=== PATIENT | female | born 1995 | race Two or more races ===

== ENCOUNTER 2025-01-24 09:23 | Outpatient (CLI) | payer MEDICAID, SELFPAY ==
[2025-01-24] VITALS (26 sets, daily range): BP systolic 121; BP diastolic 63–76; PULSE 82–126; RESP 18–97; TEMP 36.6; O2SAT 97–100; BMI 42.2
[2025-01-24] MEDS: BETAMET ACET/BETAMET NA PH (Celestone) 6 MG/ML VIAL 12 MG IM (11:23)
== END 2025-01-24 12:07 | disposition home or self-care (01) ==
LOC: S4S1 09:24 → S4SX 09:25
PROVIDERS: Referring Provider Specialist; Visit Provider Specialist
DX: O60.03 Preterm labor without delivery, third trimester (principal); Z3A.30 30 weeks gestation of pregnancy
CPT/HCPCS: 96372; J0702

== ENCOUNTER 2025-01-25 11:30 | Outpatient (CLI) | payer MEDICAID, SELFPAY ==
[2025-01-25] VITALS (28 sets, daily range): BP systolic 119–140; BP diastolic 59–77; PULSE 65–119; RESP 18–97; TEMP 36.9; O2SAT 97–99; BMI 42.3
[2025-01-25] MEDS: BETAMET ACET/BETAMET NA PH (Celestone) 6 MG/ML VIAL 12 MG IM (11:46)
--- NOTE | 2025-01-25 12:21 | XR_ITS ---
Examination: OB Transvaginal ultrasound of the pelvis, Limited Technique: Transvaginal sonographic images pelvis performed using troncoso scale imaging Exam date and time: January 25, 2025 1239 hrs. Indications: Pelvic contractions today, unknown cervical length Findings: Cardiac motion 147 BPM Cervix 3.2 cm closed Impression: Cervix 3.2 cm.
[2025-01-25] MEDS: HYDROcodone/APAP 5/325 TABLET 1 TAB PO (13:14)
[2025-01-25 13:21] LABS: Collection Type, Urine Clean Catch; RBC,Urine 0 /hpf (0-3)
[2025-01-25 13:32] LABS: Basophils % (Auto) 0 % (0-2.5); Eosinophils % (Auto) 0 % (0-10); Hematocrit 33.3 % (36.0-46.0); Hemoglobin 11.6 g/dL (12.0-16.0); Immature Granulocytes % (Auto) 1 % (0-0); Immature Granulocytes Auto 0.06 Thou/mm3 (0.00-0.00); Lymphocytes # (Auto) 1.2 Thou/mm3 (1.0-4.8); Lymphocytes % (Auto) 12 % (10-50); Mean Corpuscular HGB Conc 34.8 g/dl (31.0-37.0); Mean Corpuscular Hemoglobin 27.9 pg (25.0-35.0); Mean Corpuscular Volume 80 fL (80-100); Monocytes # (Auto) 0.9 Thou/mm3 (0.0-0.8); Monocytes % (Auto) 8 % (0-12); Neutrophils # (Auto) 8.2 Thou/mm3 (1.8-7.7); Neutrophils % (Auto) 79 % (37-80); Nucleated Red Blood Cell % 0 /100 WBC (0); Platelet Count 160 Thou/mm3 (140-440); RDW Standard Deviation 38.5 fL (36.4-46.3); Red Blood Count 4.16 Miln/mm3 (4.00-5.20); White Blood Count 10.4 Thou/mm3 (3.6-11.0)
[2025-01-25 13:39] LABS: Bilirubin,Urine Negative (Negative); Blood,Urine Negative (Negative); Clarity,Urine Clear (Clear/Hazy); Glucose, Urine Negative (Negative); Ketones,Urine Negative (Negative); Leukocyte Esterase,Urine Negative (Negative); Nitrite,Urine Negative (Negative); PH,Urine 5.5 (5.0-7.0); Protein,Urine Negative (Neg - Trace); Specific Gravity,Urine 1.006 (1.001-1.035); Squamous Epithelial Cell,Urine 3 /hpf (0-5); Urobilinogen,Urine Negative mg/dL (0.0-1.0); WBC,Urine 1 /hpf (0-5)
[2025-01-25 13:43] LABS: Fibrinogen 528 mg/dL (175-375); INR 0.9 (0.9-1.3); Partial Thromboplastin Time 25.1 Seconds (22.0-36.0); Prothrombin Time 10.3 Seconds (9.0-12.2)
[2025-01-25 13:45] LABS: Color,Urine Lt-Yellow (Lt Yel-Yel)
[2025-01-25 13:48] LABS: Creatinine,Random Urine 27 mg/dL (30-125); Protein Total, Random Urine < 6 mg/dL (1-14)
[2025-01-25 13:50] LABS: Alanine Aminotransferase 9 U/L (10-49); Albumin, Serum 3.7 gm/dL (3.5-5.0); Albumin/Globulin Ratio 1.6 (1.2-2.2); Alkaline Phosphatase 103 U/L (46-116); Anion Gap 11 (7-16); Aspartate Amino Transferase 12 U/L (0-34); BUN/Creatinine Ratio 10 Ratio (12-20); Bilirubin,Total 0.3 mg/dL (0.3-1.2); Blood Urea Nitrogen 6 mg/dL (9-23); Calcium 8.8 mg/dL (8.3-10.6); Carbon Dioxide 20.8 mMol/L (20.0-31.0); Chloride 106 mMol/L (98-107); Creatinine (Component) 0.6 mg/dL (0.6-1.3); Globulin 2.3 gm/dL (2.3-3.5); Glucose 125 mg/dL (74-106); Osmolality,Calculated 274 (275-295); Potassium 4.6 mMol/L (3.4-5.1); Sodium 138 mMol/L (136-145); eGFR > 60 See Note
[2025-01-25] MEDS: NIFEdipine 10 MG CAPSULE PO (14:06)
== END 2025-01-25 14:20 | disposition home or self-care (01) ==
LOC: S4S1 11:32 → S4SX 11:32
PROVIDERS: PCP Family Medicine; Referring Provider Obstetrics & Gynecology; Visit Provider Obstetrics & Gynecology
DX: O47.00 False labor before 37 completed weeks of gestation, unspecified trimester (principal); Z3A.30 30 weeks gestation of pregnancy
CPT/HCPCS: 36415; 76817; 80053; 81001; 82570; 84156; 84550; 85025; 85384; 85610; 85730; 96372; J0702; A9270

== ENCOUNTER 2025-02-20 12:01 | Observation (INO) | payer MEDICAID, SELFPAY ==
[2025-02-20] VITALS (16 sets, daily range): BP systolic 135–136; BP diastolic 77–82; PULSE 74–112; RESP 18–99; TEMP 36.9; O2SAT 98–99; BMI 43.0
[2025-02-20] MEDS: ONDANSETRON INJ 2 MG/ML INJ 2 ML 4 MG IVP (13:11)
[2025-02-20] MEDS: RINGERS LACTATED 1000 ML 1,000 ML 999 ML IV (13:12)
== END 2025-02-20 14:35 | disposition home or self-care (01) ==
PROVIDERS: Admitting Provider Obstetrics & Gynecology; Visit Provider Obstetrics & Gynecology
DX: O26.899 Other specified pregnancy related conditions, unspecified trimester (principal); Z3A.00 Weeks of gestation of pregnancy not specified; R25.2 Cramp and spasm
CPT/HCPCS: 59025; 59899; 96374; J2405; J7120

== ENCOUNTER 2025-03-13 11:58 | Outpatient (CLI) | payer MEDICAID, SELFPAY ==
[2025-03-13] VITALS (48 sets, daily range): BP systolic 104–140; BP diastolic 62–88; PULSE 68–127; RESP 16–98; TEMP 36.7; O2SAT 97–99; BMI 43.5
[2025-03-13 12:46] LABS: Collection Type, Urine Clean Catch
--- NOTE | 2025-03-13 12:46 | XR_ITS ---
Examination: Biophysical profile, ultrasound Date and time of exam: March 13, 2025 1306 hours INDICATIONS: Decreased movement today Technique: Multiple transabdominal sonographic images of the pelvis abdomen obtained. Attention is directed to the breathing movement, gross body movement, amniotic fluid volume and tone. Findings: Amniotic fluid index 13.6 cm Total biophysical profile is 8 of 8. breathing movement is 2. Gross body movement is 2. tone is 2. Qualitative amniotic fluid volume is 2 Impression: Biophysical profile is 8 of 8.
[2025-03-13 12:52] LABS: Bilirubin,Urine Negative (Negative); Blood,Urine Negative (Negative); Clarity,Urine Clear (Clear/Hazy); Color,Urine Lt-Yellow (Lt Yel-Yel); Glucose, Urine Negative (Negative); Hyaline Casts,Urine < 1 /hpf (0-1); Ketones,Urine Negative (Negative); Leukocyte Esterase,Urine Positive (Negative); Nitrite,Urine Negative (Negative); PH,Urine 6.5 (5.0-7.0); Protein,Urine Negative (Neg - Trace); RBC,Urine 1 /hpf (0-3); Specific Gravity,Urine 1.014 (1.001-1.035); Squamous Epithelial Cell,Urine 10 /hpf (0-5); Urobilinogen,Urine Negative mg/dL (0.0-1.0); WBC,Urine 6 /hpf (0-5)
[2025-03-13 12:59] LABS: Creatinine,Random Urine 80 mg/dL (30-125); Protein Total, Random Urine 16 mg/dL (1-14)
[2025-03-13 13:30] LABS: Basophils # (Auto) 0.0 Thou/mm3 (0.0-0.2); Basophils % (Auto) 0 % (0-2.5); Eosinophils # (Auto) 0.0 Thou/mm3 (0.0-0.5); Eosinophils % (Auto) 1 % (0-10); Hematocrit 36.5 % (36.0-46.0); Hemoglobin 12.4 g/dL (12.0-16.0); Immature Granulocytes Auto 0.02 Thou/mm3 (0.00-0.00); Lymphocytes # (Auto) 1.7 Thou/mm3 (1.0-4.8); Lymphocytes % (Auto) 24 % (10-50); Mean Corpuscular HGB Conc 34.0 g/dl (31.0-37.0); Mean Corpuscular Hemoglobin 27.5 pg (25.0-35.0); Mean Corpuscular Volume 81 fL (80-100); Monocytes # (Auto) 0.6 Thou/mm3 (0.0-0.8); Monocytes % (Auto) 8 % (0-12); Neutrophils # (Auto) 4.7 Thou/mm3 (1.8-7.7); Neutrophils % (Auto) 67 % (37-80); Nucleated Red Blood Cell # 0.00 Thou/mm3 (0.00-0.00); Nucleated Red Blood Cell % 0 /100 WBC (0); Platelet Count 134 Thou/mm3 (140-440); RDW Standard Deviation 43.0 fL (36.4-46.3); Red Blood Count 4.51 Miln/mm3 (4.00-5.20); White Blood Count 7.1 Thou/mm3 (3.6-11.0)
[2025-03-13 13:52] LABS: Fibrinogen 557 mg/dL (175-375); INR 0.9 (0.9-1.3); Partial Thromboplastin Time 25.3 Seconds (22.0-36.0); Prothrombin Time 9.8 Seconds (9.0-12.2)
[2025-03-13 13:59] LABS: Alanine Aminotransferase 9 U/L (10-49); Albumin, Serum 3.6 gm/dL (3.5-5.0); Albumin/Globulin Ratio 1.4 (1.2-2.2); Alkaline Phosphatase 185 U/L (46-116); Anion Gap 8 (7-16); Aspartate Amino Transferase 15 U/L (0-34); BUN/Creatinine Ratio 9 Ratio (12-20); Bilirubin,Total 0.3 mg/dL (0.3-1.2); Blood Urea Nitrogen 6 mg/dL (9-23); Calcium 9.5 mg/dL (8.3-10.6); Calcium (Corrected) 9.8 mg/dL (8.5-10.1); Carbon Dioxide 22.0 mMol/L (20.0-31.0); Chloride 107 mMol/L (98-107); Creatinine (Component) 0.7 mg/dL (0.6-1.3); Estimated Creatinine Clearance 124.6 mL/min (>60); Globulin 2.5 gm/dL (2.3-3.5); Glucose 92 mg/dL (74-106); LDH (Lactate Dehydrogenase) 194 U/L (120-246); Osmolality,Calculated 271 (275-295); Potassium 4.4 mMol/L (3.4-5.1); Sodium 137 mMol/L (136-145); Total Protein 6.1 gm/dL (5.7-8.2); Uric Acid 5.1 mg/dL (3.1-7.8); eGFR > 60 See Note
[2025-03-13] MEDS: FAMOTIDINE 20 MG TABLET 40 MG PO (14:48)
== END 2025-03-13 16:25 | disposition home or self-care (01) ==
LOC: S4S1 12:02 → S4SX 12:04
PROVIDERS: Referring Provider Obstetrics & Gynecology; Visit Provider Obstetrics & Gynecology
DX: O36.8130 Decreased fetal movements, third trimester, not applicable or unspecified (principal); O26.893 Other specified pregnancy related conditions, third trimester; R51.9 Headache, unspecified; R12 Heartburn; Z3A.37 37 weeks gestation of pregnancy
CPT/HCPCS: 36415; 59025; 76819; 80053; 81001; 82570; 83615; 84156; 84550; 85025; 85384; 85610; 85730; A9270

== ENCOUNTER 2025-03-15 08:09 | Outpatient (CLI) | payer MEDICAID, SELFPAY ==
[2025-03-15] VITALS (11 sets, daily range): BP systolic 127; BP diastolic 77; PULSE 82–126; RESP 18–98; TEMP 36.6; O2SAT 97–99; BMI 43.8
--- NOTE | 2025-03-15 08:32 | XR_ITS ---
Examination: Biophysical profile, ultrasound Date and time of exam: March 15, 2025, 0847 hrs. Indications: Hypertension with headaches and decreased movement the last 2 days Technique: Multiple transabdominal sonographic images of the pelvis abdomen obtained. Attention is directed to the breathing movement, gross body movement, amniotic fluid volume and tone. Findings: Amniotic fluid volume 13.3 cm Total biophysical profile is 8 of 8. breathing movement is 2. Gross body movement is 2. tone is 2. Qualitative amniotic fluid volume is 2 Impression: Biophysical profile is 8 of 8.
--- NOTE | 2025-03-15 09:45 | PC.NURSE ---
5667 discharge instructions reviewed, labor precautions, kick counts, keep next scheduled md appt. copies given. pt agrees/understands.
--- NOTE | 2025-03-15 09:48 | PD.LDPN ---
Documentation for date of: 03/15/25 OB Labor Progress Note Pelvic Exam Amniotic membrane status: Intact Contractions Monitor mode: External Contraction frequency: occ Status status: Category l Assessment and Plan Comments: Triage Note Yue is a 29yo with SIUP at 37+wk presenting to L&D for decreased movement. She had recent normal testing 2 days prior on L&D with reactive NST, BPP 8/8. She notes no ctx, no lof, no vaginal bleeding. ROS negative other than what was described above. Vitals wnl, afebrile General: well developed, well nourished, no acute distress, conversant Cardiac: normal heart rate Lungs: breathing without distress Abdomen: soft, gravid, non-tender, no rebound or guarding Extremities: no pain with palpation of calves NST: Reactive, + accels, no decels, mod david Occasional ctx Formal ultrasound: DIONICIO 13.3cm, BPP 8/8 Assessment: Yue is a 29yo with SIUP at 37+wk with decreased movement. Vitals wnl, benign exam. Reassuring status based on NST and BPP. Plan: -Provided reassurance regarding findings -Continue routine follow up with OBGYN -Discussed return precautions at length including FKCs Dr. Bolivar
== END 2025-03-15 09:40 | disposition home or self-care (01) ==
LOC: S4S1 08:15 → S4SX 08:18
PROVIDERS: Referring Provider Obstetrics & Gynecology; Visit Provider Obstetrics & Gynecology
DX: O36.8130 Decreased fetal movements, third trimester, not applicable or unspecified (principal); Z3A.37 37 weeks gestation of pregnancy
CPT/HCPCS: 76819

== ENCOUNTER 2025-03-21 09:50 | Inpatient (IN) | payer MEDICAID, SELFPAY ==
[2025-03-21] VITALS (158 sets, daily range): BP systolic 71–142; BP diastolic 41–98; PULSE 65–127; RESP 18–98; TEMP 36.6–37.1; O2SAT 87–100; BMI 43.0
--- NOTE | 2025-03-21 10:37 | XR_ITS ---
Examination: Complete OB ultrasound greater than 14 weeks Date and time of exam: March 21, 2025 1127 hours INDICATIONS: Labor induction today, diagnosis gestational hypertension Findings: Viable intrauterine single fetus with single amniotic sac presentation cephalic spine maternal left Cardiac motion 137 BPM Placenta posterior grade 2 Of the cervical cord insertion 3 vessel seen Amniotic fluid index 16.5 cm Ovaries obscured by bowel gas. Composite estimated gestational age based on BPD, head circumference, abdominal circumference, femur length is 38 weeks 5 days Estimated weight 3499 g. Survey of intracranial anatomy, spinal anatomy, abdominal anatomy, four-chamber heart performed with no abnormalities identified. Impression: Viable intrauterine gestation cephalic presentation.
[2025-03-21 10:54] LABS: Basophils # (Auto) 0.0 Thou/mm3 (0.0-0.2); Basophils % (Auto) 0 % (0-2.5); Eosinophils # (Auto) 0.1 Thou/mm3 (0.0-0.5); Eosinophils % (Auto) 1 % (0-10); Hematocrit 38.5 % (36.0-46.0); Hemoglobin 13.2 g/dL (12.0-16.0); Immature Granulocytes Auto 0.01 Thou/mm3 (0.00-0.00); Lymphocytes # (Auto) 1.9 Thou/mm3 (1.0-4.8); Lymphocytes % (Auto) 27 % (10-50); Mean Corpuscular HGB Conc 34.3 g/dl (31.0-37.0); Mean Corpuscular Hemoglobin 27.9 pg (25.0-35.0); Mean Corpuscular Volume 81 fL (80-100); Monocytes # (Auto) 0.5 Thou/mm3 (0.0-0.8); Monocytes % (Auto) 6 % (0-12); Neutrophils # (Auto) 4.6 Thou/mm3 (1.8-7.7); Neutrophils % (Auto) 65 % (37-80); Nucleated Red Blood Cell # 0.00 Thou/mm3 (0.00-0.00); Nucleated Red Blood Cell % 0 /100 WBC (0); Platelet Count 195 Thou/mm3 (140-440); RDW Standard Deviation 43.4 fL (36.4-46.3); Red Blood Count 4.73 Miln/mm3 (4.00-5.20); White Blood Count 7.0 Thou/mm3 (3.6-11.0)
[2025-03-21 11:09] LABS: Protein Total, Urine Volume 1400 mL/24hr (600-1800)
[2025-03-21 11:16] LABS: Creatinine,Random Urine 76 mg/dL (30-125); Protein Total, 24 hr Urine 238 mg/24hr (<149); Protein Total, Random Urine 17 mg/dL (1-14); Protein Total, Urine 17 mg/dL (1-14)
[2025-03-21 11:25] LABS: Alanine Aminotransferase 10 U/L (10-49); Albumin, Serum 3.6 gm/dL (3.5-5.0); Albumin/Globulin Ratio 1.5 (1.2-2.2); Alkaline Phosphatase 196 U/L (46-116); Anion Gap 13 (7-16); Aspartate Amino Transferase 18 U/L (0-34); BUN/Creatinine Ratio 13 Ratio (12-20); Bilirubin,Total 0.3 mg/dL (0.3-1.2); Blood Urea Nitrogen 9 mg/dL (9-23); Calcium 9.2 mg/dL (8.3-10.6); Calcium (Corrected) 9.5 mg/dL (8.5-10.1); Carbon Dioxide 19.2 mMol/L (20.0-31.0); Chloride 106 mMol/L (98-107); Creatinine (Component) 0.7 mg/dL (0.6-1.3); Estimated Creatinine Clearance 123.6 mL/min (>60); Globulin 2.4 gm/dL (2.3-3.5); Glucose 100 mg/dL (74-106); Osmolality,Calculated 274 (275-295); Potassium 3.7 mMol/L (3.4-5.1); Sodium 138 mMol/L (136-145); Total Protein 6.0 gm/dL (5.7-8.2); Uric Acid 5.3 mg/dL (3.1-7.8); eGFR > 60 See Note
[2025-03-21 11:32] LABS: Syphilis Nonreactive (Nonreactive)
[2025-03-21 11:33] LABS: Collection Type, Urine Clean Catch
[2025-03-21 11:41] LABS: Bacteria,Urine Rare; Bilirubin,Urine Negative (Negative); Blood,Urine Negative (Negative); Clarity,Urine Turbid (Clear/Hazy); Color,Urine Yellow (Lt Yel-Yel); Glucose, Urine Negative (Negative); Ketones,Urine Negative (Negative); Leukocyte Esterase,Urine Positive (Negative); Nitrite,Urine Negative (Negative); PH,Urine 6.5 (5.0-7.0); Protein,Urine 1+ (Neg - Trace); RBC,Urine 8 /hpf (0-3); Specific Gravity,Urine 1.022 (1.001-1.035); Squamous Epithelial Cell,Urine 22 /hpf (0-5); Urobilinogen,Urine Negative mg/dL (0.0-1.0); WBC,Urine 8 /hpf (0-5)
[2025-03-21 12:44] LABS: INR 0.9 (0.9-1.3); Partial Thromboplastin Time 24.5 Seconds (22.0-36.0); Prothrombin Time 10.1 Seconds (9.0-12.2)
[2025-03-21 12:47] LABS: Fibrinogen 538 mg/dL (175-375)
[2025-03-21] MEDS: RINGERS LACTATED 1000 ML 1,000 ML 100 ML IV (14:18)
[2025-03-21] MEDS: OXYTOCIN in NS 30 units 30 UNIT/500 ML BAG IV (14:20)
--- NOTE | 2025-03-21 16:53 | PD.LDHP ---
Documentation for date of: 03/21/25 OB Labor/Induct. HPI History of Present Illness Chief complaint: IOL for new onset gestational hypertension : 6 Para: 4 Term pregnancies: 4 pregnancies: 0 Living children: 4 History of Abortions: Spontaneous and Elective: 1 History of Vaginal deliveries: 4 History of sections: No History of : No Date of last menstrual period: 06/25/24 JUAN: 04/01/25 Gestational Age (weeks): 38 Gestational Age (days): 3 Gestational age based on last menstrual period: 38 History of present illness: Yue Vera is a 29-year-old at 38w3d gestation by LMP 06/17/2024, JUAN 04/01/2025, presenting for labor evaluation. She has been receiving care at [facility] with Dr. Ramírez, and plans to take her to Health system for pediatric care. She desires a vaginal delivery and does not wish to receive an epidural. Her medical history is significant for hypertension and anxiety. No known drug allergies except for latex (rash). She reports feeling well at this time and is tolerating labor. Labs Labs: Positive: Rubella Titre, Negative: RPR, Hepatitis B, HIV, Chlamydia and Gonorrhea and Unknown: Herpes Type 1, Herpes Type 2 and Covid-19 Review of Systems Review of Systems Systems Reviewed: All systems reviewed, normal except as documented Past Medical History Surgical History SURGICAL: Negative Section Meds Home Medications and Allergies Home Medications ?Medication ?Instructions ?Recorded ?Confirmed ?Type aspirin 81 mg tablet,delayed 81 mg PO QDAY 03/21/25 03/21/25 History release vitamin #56-iron 35 mg 1 cap PO QDAY 03/21/25 03/21/25 History and 5 mg-folic acid 1 mg-dha capsule Allergies Allergy/AdvReac Type Severity Reaction Status Date / Time latex Allergy Severe Hives Verified 03/21/25 11:18 OB Exam Physical Exam Vital signs: Temp Pulse Resp BP Pulse Ox O2 Del Method 98.2 F 88 18 117/78 97 Room Air 03/21/25 15:54 03/21/25 16:38 03/21/25 15:54 03/21/25 16:38 03/21/25 16:52 03/21/25 12:50 Constitutional Constitutional: no acute distress Routine HEENT Exam Head: Present normocephalic and atraumatic Eye: Present EOMI and PERRL ENT: Present mucous membranes moist Routine Neck Exam Neck: Present supple and trachea midline Routine Cardiovascular Exam Cardiovascular: Present RRR Routine Abdominal Exam Abdominal: Present soft and normoactive bowel sounds Detailed Labor and Delivery Exam Dilation (cm): 5 Effacement (%): 80 Cervix position: mid station: -2 Consistency: soft Presentation: Vertex Baseline heart rate: 130 monitor accelerations: 15x15 monitor decelerations: None Contraction frequency (min): 3-5 Routine Extremities Exam Extremities: Present full ROM Routine Skin Exam Skin: Present intact, dry and warm Routine Neurological Exam Neurological: Present alert, oriented X3 and CN II-XII intact Routine Psychiatric Exam Psychiatric: Present normal affect and normal thought process OB Results Labs 03/21/25 10:25 03/21/25 10:25 Labs: Short CBC 03/21/25 Range/Units 10:25 WBC 7.0 (3.6-11.0) Thou/mm3 Hgb 13.2 (12.0-16.0) g/dL Hct 38.5 (36.0-46.0) % Plt Count 195 D (140-440) Thou/mm3 BMP 03/21/25 10:25 Sodium 138 Potassium 3.7 Chloride 106 Carbon Dioxide 19.2 L BUN 9 Creatinine 0.7 Glucose 100 Calcium 9.2 Liver Function 03/21/25 Range/Units 10:25 Total Bilirubin 0.3 (0.3-1.2) mg/dL AST 18 (0-34) U/L ALT 10 (10-49) U/L Alkaline Phosphatase 196 H (46-116) U/L Albumin 3.6 (3.5-5.0) gm/dL Urine 03/21/25 Range/Units 11:00 Urine Color Yellow (Lt Yel-Yel) Urine Clarity Turbid A (Clear/Hazy) Urine pH 6.5 (5.0-7.0) Ur Specific [place] 1.022 (1.001-1.035) Urine Protein 1+ A (Neg - Trace) Urine Glucose (UA) Negative (Negative) OB Assessment & Plan Assessment and Plan (1) Intractable headache: Status: Acute (2) Gestational hypertension: Status: Acute Assessment and plan: Term intrauterine at 38w3d in early labor Admit to L&D for expectant management Labs: CBC, RPR, Type & Screen, Preeclampsia panel, 24-hour urine for protein/creatinine Continue routine monitoring and vital signs Plan to AROM when appropriate Bedside ultrasound to confirm presentation and reassess weight Anticipate rapid labor progression based on obstetric history Pain plan: Continue fentanyl PRN; patient declines epidural Monitor for signs of active labor and status closely (3) Grand multiparity: Status: Acute
[2025-03-21] MEDS: IBUPROFEN TAB 400 MG TABLET 800 MG PO (17:52)
[2025-03-21] MEDS: BENZO/LANO/ALOE (Dermoplast) 60 GM CAN 1 SPRAY TOP (17:52)
[2025-03-21] MEDS: OXYTOCIN in NS 20 units 20 UNIT/1,000 ML BAG 125 UNIT IV (17:55)
[2025-03-21] MEDS: fentaNYL CIT INJ 50 mCg/ML AMP 2ML 100 MCG IVP (18:00)
--- NOTE | 2025-03-21 18:29 | OBDSUM_ITS ---
Data (Hernández) Data Hx Section: No : 6 Term: 4 : 0 Livin Abortions: Spontaneous & Theraputic: 1 Delivery Data (Hernández) Labor Data Initiation of labor: Induction Induction/Augmentation Agent: Pitocin ROM date: 03/21/25 Amniotic membrane rupture type: Artificial Amniotic fluid description: Clear Delivery Data Onset of labor date: 03/21/25 Onset of labor time: 16:33 Complete dilation date: 03/21/25 Complete dilation time: 17:46 [place] delivery date: 03/21/25 delivery time: 17:46 Placenta delivery date: 03/21/25 Placenta delivery time: 17:57 Stage 1 total time: Labor - Stage 1 Duration 1 hours and 13 minutes Delivered by: ava Delivery nurse: Damari Donald nurse: David [employer] at delivery: No Support person(s) at delivery: FOB Other staff at delivery: [email or web address] Delivery Method Delivery method: Normal Vaginal Delivery Presentation: Vertex Anesthesia Type Anesthesia Type: None Placenta cord blood collection: Cord Blood Type Episiotomy Episiotomy description: None Umbilical Cord cord description: 3 Vessels [place] Data (Hernández) Data order: 1 [place]'s gender: Male Identification band number: [id number] weight (gms): 3585 g Weight (pounds): 7 lbs and 14.5 ozs 1 minute: 9 5 minutes: 9
[2025-03-22] VITALS: BP 98/62; PULSE 87; RESP 18; TEMP 36.9; O2SAT 97
[2025-03-22 04:00] VITALS: BP 107/75; PULSE 88; RESP 16; TEMP 36.7; O2SAT 98
[2025-03-22] MEDS: IBUPROFEN TAB 400 MG TABLET 800 MG PO ×2 (04:43→15:46)
[2025-03-22 05:24] LABS: Basophils # (Auto) 0.0 Thou/mm3 (0.0-0.2); Basophils % (Auto) 0 % (0-2.5); Eosinophils # (Auto) 0.1 Thou/mm3 (0.0-0.5); Eosinophils % (Auto) 1 % (0-10); Hematocrit 35.5 % (36.0-46.0); Hemoglobin 11.9 g/dL (12.0-16.0); Immature Granulocytes Auto 0.02 Thou/mm3 (0.00-0.00); Lymphocytes # (Auto) 2.2 Thou/mm3 (1.0-4.8); Lymphocytes % (Auto) 25 % (10-50); Mean Corpuscular HGB Conc 33.5 g/dl (31.0-37.0); Mean Corpuscular Hemoglobin 27.6 pg (25.0-35.0); Mean Corpuscular Volume 82 fL (80-100); Monocytes # (Auto) 0.8 Thou/mm3 (0.0-0.8); Monocytes % (Auto) 9 % (0-12); Neutrophils # (Auto) 5.5 Thou/mm3 (1.8-7.7); Neutrophils % (Auto) 65 % (37-80); Nucleated Red Blood Cell # 0.00 Thou/mm3 (0.00-0.00); Nucleated Red Blood Cell % 0 /100 WBC (0); Platelet Count 170 Thou/mm3 (140-440); RDW Standard Deviation 44.8 fL (36.4-46.3); Red Blood Count 4.31 Miln/mm3 (4.00-5.20); White Blood Count 8.6 Thou/mm3 (3.6-11.0)
[2025-03-22] MEDS: DOCUSATE SOD 100 MG CAPSULE PO (08:26)
[2025-03-22 08:30] VITALS: BP 122/80; PULSE 94; RESP 17; TEMP 37; O2SAT 98
[2025-03-22 11:45] VITALS: BP 110/76; PULSE 88; RESP 17; TEMP 36.9; O2SAT 97
--- NOTE | 2025-03-22 14:36 | ESPR_ITS ---
Subjective Subjective Interval history: The patient is a 29-year-old G6 now P5015 status post vaginal delivery last night by Dr. Jeffery around 1715. She was induced for gestational hypertension. Today the patient is resting comfortably in bed. She only reports some left flank pain. She denies any burning with urination heavy vaginal bleeding or fevers. Her predelivery hemoglobin is 13.2 her postdelivery hemoglobin is 11.9. Patient had no significant lacerations. She has breast and bottlefeeding. The plan will be to check on her later this afternoon and see if she wants to go home at 24 hours post delivery. If her flank pain gets worse we will work it up with straight cath urinalysis and possibly an ultrasound. No signs of pyelonephritis on physical exam. Exam Vital Signs Temp Pulse Resp BP Pulse Ox O2 Del Method 98.5 F 88 17 110/76 97 Room Air 03/22/25 11:45 03/22/25 11:45 03/22/25 11:45 03/22/25 11:45 03/22/25 11:45 03/22/25 11:45 Narrative Exam Patient is alert and oriented x 3 no apparent distress fundus is firm nontender no significant left flank pain on palpation. Extremities show no significant edema or erythema. Objective Labs 03/22/25 04:30 03/21/25 10:25 Labs: Laboratory Results - last 24 hr 03/22/25 04:30 WBC 8.6 RBC 4.31 Hgb 11.9 L Hct 35.5 L MCV 82 MCH 27.6 MCHC 33.5 RDW Std Deviation 44.8 Plt Count 170 Neut % (Auto) 65 Lymph % (Auto) 25 [place] % (Auto) 9 Eos % (Auto) 1 Baso % (Auto) 0 Neut # (Auto) 5.5 Lymph # (Auto) 2.2 [place] # (Auto) 0.8 Eos # (Auto) 0.1 Baso # (Auto) 0.0 Immature Gran # (Auto) 0.02 H Absolute Nucleated RBC 0.00 Immature Gran % 0 Nucleated RBC % 0 Assessment & Plan Problem List (1) care following vaginal delivery: Status: Acute Assessment and plan: Patient is day #1 doing very well today. No significant bleeding. We will see what happens with the flank tenderness. It is likely positional from pushing. If patient's blood pressures are stable and her pain resolves,will possibly discharge at 24 hours if patient would like to go home. At this point, the patient does not have a white count, fever or any signs of pyelonephritis. Her pain is likely musculoskeletal. Time Spent With Patient Time: Total time spent is greater than 50% in coordination of care (as documented) at patient's floor/unit and/or counseling patient: Time with patient: less than 15 minutes
[2025-03-22 16:02] VITALS: BP 123/85; PULSE 93; RESP 18; TEMP 36.9; O2SAT 99
--- NOTE | 2025-03-22 19:26 | ESDS_ITS ---
DS: Providers Provider Date of admission: 03/21/25 09:50 Primary care physician: Physician No Primary/Family Admitting Provider: Dequan Jeffery MD Attending Provider on Admission: Dequan Jeffery MD Consults: 03/21/25 22:54 Referral Routine Comment: Attending Provider on DC: Qian Medina MD ([facility]) Discharging Provider: Qian Medina MD ([facility]) Anticipated date of discharge: 03/22/25 DS: Diagnosis Discharge Diagnosis (1) care following vaginal delivery: Status: Acute Assessment & Plan: Patient is day #1. She delivered at 1715 on 03/21/25. She is doing well and would like to go home. This morning she reported some flank pain but this has resolved. She states it is much better when she is walking around. It is her fifth vaginal delivery. She is denying any pain heavy bleeding or other problems she will be discharged home day #1 in stable condition. Problem List Completed Was Problem List Reviewed/Reconciled?: Yes Summary/Hosp Course Brief History: Yue Vera is a 29-year-old at 38w3d gestation by LMP 06/17/2024, JUAN 04/01/2025, presenting for labor evaluation. She has been receiving care at [facility] with Dr. Ramírez, and plans to take her to [facility] for pediatric care. She desires a vaginal delivery and does not wish to receive an epidural. Her medical history is significant for hypertension and anxiety. No known drug allergies except for latex (rash). She reports feeling well at this time and is tolerating labor. Please see history and physical for further details. Patient was admitted by Dr. Jeffery 03/21/2025. She underwent an uncomplicated vaginal delivery by Dr. Jeffery around 1715 on 03/21/2025. Please see delivery notes for further details. On day #1 patient was ambulating, tolerating a general diet, passing flatus. Her pain was controlled with oral pain medication. Predelivery hemoglobin was 13.2. Postdelivery hemoglobin was 11.9. Vital signs were stable. Patient was discharged home day #1 in stable condition. Peripartum Data Delivery Method: Normal Vaginal Delivery Episiotomy Description: None Laceration Description: see Delivery Summary complications: none Status at Discharge Cognitive/behavioral status at discharge: Patient is alert and oriented x 3 and in no apparent distress Functional status at discharge: independent ambulation Overall status at discharge: patient is progressing back to baseline Time Spent with Patient Time attestation: Total time spent providing and/or coordinating discharge services: Time spent: Less than 30 minutes Specific discharge activities: No intercourse tampons or douching x 6 weeks. Exam Vital Signs Temp Pulse Resp BP Pulse Ox O2 Del Method 98.4 F 93 18 123/85 H 99 Room Air 03/22/25 16:02 03/22/25 16:02 03/22/25 16:02 03/22/25 16:02 03/22/25 16:02 03/22/25 16:02 Narrative Exam Patient is alert and oriented x 3 in no apparent distress. Fundus is firm at umbilicus. Extremities show no significant edema or erythema. Discharge Plan Plan Patient Disposition: HOME (Self Care) Disposition Comment: Stable Prescriptions/Referrals Prescriptions/Med Rec: New acetaminophen 325 mg Tablet 650 mg PO Q6HR PRN (Reason: Patient rated pain of 3) Qty: 60 0RF ibuprofen 400 mg Tablet 800 mg PO Q8HR PRN (Reason: Pain Scale 4-6 (Moderate) Qty: 60 0RF docusate sodium 100 mg Capsule 100 mg PO QDAY Qty: 30 0RF No Action aspirin 81 mg tablet,delayed release (DR/EC) 81 mg PO QDAY Patient Comments: TAKE 2 TABLETS BY MOUTH EVERY DAY PNV #81-brja-lcyip acid-dha 35 mg iron-5 mg iron-1 mg capsule 1 cap PO QDAY Referrals: No Primary/Family,Physician [Primary Care Provider] - Patient/Caregiver Discharge Instructions Discharge Activity: activity as tolerated Other Discharge Activity Instructions:: Pelvic rest x 6 weeks. Call for a appointment with your primary bike technician. Call for fevers, heavy vaginal bleeding, breast concerns, or severe depression. Other Discharge Diet Instructions: General Diet Education Materials: After a Vaginal , Understanding Blues, Nutrition While Print Language: Jordanian Activity Restrictions/Additional Instructions: Call for a visit in 2 to 4 weeks. Stand Alone Forms: [facility]ely Award Info., Patient Portal Info Letter Discharge Order Discharge Orders: Discharge (Routine); Ordered 03/22/25 Ordered By: Qian Medina ([facility]) Planned Discharge Date 03/22/25
== END 2025-03-22 20:04 | disposition home or self-care (01) | DRG 560 ==
LOC: S4SX 13:11 → S4NX 23:30
PROVIDERS: Admitting Provider Obstetrics & Gynecology; Visit Provider Obstetrics & Gynecology
DX: O13.4 Gestational [pregnancy-induced] hypertension without significant proteinuria, complicating childbirth (principal); Z3A.38 38 weeks gestation of pregnancy; Z37.0 Single live birth; O99.344 Other mental disorders complicating childbirth; Z91.040 Latex allergy status; F41.9 Anxiety disorder, unspecified
CPT/HCPCS: 36415; 59409; 76805; 80053; 81001; 82570; 84156; 84550; 85025; 85384; 85610; 85730; 86780; 86850; 86900; 86901; 94762; J2590; J3010; J7120; A9270